=== PATIENT | male | born 1980 | race Two or more races ===

== ENCOUNTER 2021-07-03 06:44 | Emergency (ER) | payer MEDICAID, OTHER ==
[~2021-07-03] VITALS: Ht 185.4 cm; Wt 106.6 kg
[~2021-07-03 06:44] MED LIST: LISI-275 PO
[2021-07-03 07:18] VITALS: BP 150/102
== END 2021-07-03 08:04 | disposition home or self-care (01) ==
LOC: ER 06:44
DX: H60.92 Unspecified otitis externa, left ear (principal); I10 Essential (primary) hypertension; F17.210 Nicotine dependence, cigarettes, uncomplicated